=== PATIENT | female | born 1995 | race Caucasian/White ===

== ENCOUNTER → 2020-06-14 | Outpatient (CLI) | payer OTHER ==
--- NOTE | 2020-06-14 13:36 | Diagnostic Imaging Report ---
INDICATION: survey. TECHNIQUE: Multiple real-time grayscale images were obtained over the gravid uterus. COMPARISON: None FINDINGS: There is a single live fetus in a cephalic presentation. heart rate was recorded at 140 bpm. Placenta is anterior. Amniotic fluid index is 12.9 cm. Cervical length is 4 cm. survey demonstrates kidneys, bladder and stomach to be unremarkable. brain is unremarkable. There is a four-chamber heart. There is a three-vessel cord with normal insertion. The spine is unremarkable. Biometrical measurements are as follows: Biparietal 5.07 cm, age 21 weeks 3 days. Head circumference 18.12 cm, age 20 weeks 4 days. Abdominal circumference 14.82 cm, age 20 weeks 1 days. Femur length 3.32 cm, age 20 weeks 3 days. Sonographic estimate age: 20 weeks 5 days. Sonographic estimated date of delivery: 10/27/2020. Estimated Weight: 345 gm (+/- 50 gm). LMP percentile: 54%. heart rate: 140 beats per minute. number: 1 of 1. IMPRESSION: Single live IUP 20 weeks 5 days gestational age. Estimated date of confinement sonographically is 10/27/2020. Dictated by: Dictated on workstation # [id number]
== END ==
LOC: RAD 12:30
PROVIDERS: ATTEND Nurse Practitioner Women's Health
DX: Z34.02 Encounter for supervision of normal first pregnancy, second trimester (principal); Z3A.20 20 weeks gestation of pregnancy
CPT/HCPCS: 76805

== ENCOUNTER 2020-10-30 11:55 | Inpatient (IN) | payer OTHER ==
[~2020-10-30] VITALS: Ht 175.3 cm; Wt 73.1 kg
[2020-10-30] VITALS (30 sets, daily range): BP systolic 104–140; BP diastolic 55–85
[2020-10-30] MEDS ORDERED: LIDOCAINE/EPI 2% 1:200,00 (XYLOCAINE) 20 ML VIAL INJ ONE (12:45)
[2020-10-30] MEDS ORDERED: D5 LR IV SOLUTION 1,000 ML IV SCH ×2 (12:45→13:00)
--- NOTE | 2020-10-30 12:53 | History & Physical ---
History and Physical Date Seen by Provider: Oct 30, 2020 Time Seen by Provider: 12:51 This patient is a 25-year-old 1 female who presents at 39+ weeks gestation with complaint of spontaneous rupture membranes and painful contractions.Her Has been uncomplicated and her GBS culture after 35 weeks gestation was negative. Patient reports a large gush of clear fluid Patient is uncomfortable and would like to have an epidural and we discussed that Allergies are to penicillin and Z-Dex Medications are vitamins Medical social and surgical history is all per the antepartum record per Dr. Maggie SALAS exam is normal Neck is supple no lymphadenopathy no thyromegaly Abdomen is gravid soft nontender nondistended Extremities show no clubbing or cyanosis. There is no Homans' sign. Pelvic exam per the nurse shows a cervix 7 cm dilated effacement was not stated station was 0 to +1 with a vertex presentation and clear fluid monitor shows a category 1 tracing with contractions every 3 to 5 minutes Assessment and plan Term at 39+ weeks gestation and active labor with spontaneous rupture membranes. We anticipate a vaginal delivery 39 weeks gestation in active labor with spontaneous rupture membranes Allergies and Home Medications Allergies Coded Allergies: Penicillins (Verified Allergy, Unknown, Rash, 10/30/20) Uncoded Allergies: z-pack (Allergy, Mild, 10/30/20) Patient Home Medication List Home Medication List Reviewed: Yes MADHAV ERWIN MD Oct 30, 2020 12:53
[2020-10-30 13:09] LABS: BASOPHILS # (AUTO) 0.1 10^3/uL (0.0-0.1); BASOPHILS % (AUTO) 0 % (0-10); EOSINOPHILS # (AUTO) 0.1 10^3/uL (0.0-0.3); EOSINOPHILS % (AUTO) 0 % (0-10); HEMATOCRIT 43 % (35-52); HEMOGLOBIN 15.1 g/dL (11.5-16.0); LYMPHOCYTES # (AUTO) 1.5 10^3/uL (1.0-4.0); LYMPHOCYTES % (AUTO) 9 % (12-44); MEAN CORPUSCULAR HEMOGLOBIN 32 pg (25-34); MEAN CORPUSCULAR HGB CONC 35 g/dL (32-36); MEAN CORPUSCULAR VOLUME 92 fL (80-99); MEAN PLATELET VOLUME 11.7 fL (9.0-12.2); MONOCYTES # (AUTO) 1.3 10^3/uL (0.0-1.0); MONOCYTES % (AUTO) 7 % (0-12); NEUTROPHILS # (AUTO) 14.3 10^3/uL (1.8-7.8); NEUTROPHILS % (AUTO) 82 % (42-75); PLATELET COUNT 160 10^3/uL (130-400); WHITE BLOOD COUNT 17.5 10^3/uL (4.3-11.0)
[2020-10-30] MEDS ORDERED: OXYTOCIN PRE-MIX DRIP 500 ML IV ONE (13:11)
[2020-10-30] MEDS ORDERED: fentaNYL 2 mcg/ml BUPIVA 0.125 100 ML ONE (13:11)
[2020-10-30 13:30] LABS: BAND NEUTROPHILS 1 %; EOSINOPHILS % (MANUAL) 1 %; LYMPHOCYTES % (MANUAL) 12 %; MONOCYTES % (MANUAL) 4 %; NEUTROPHILS % (MANUAL) 82 %; RBC MORPH NORMAL
[2020-10-30] MEDS ORDERED: fentaNYL INJ 100 MCG/2 ML AMP ONE (13:54)
[2020-10-30] MEDS: CATHETER FLUSH 10 ML SYR IV SCH (14:23)
[2020-10-30] MEDS ORDERED: PREN1TAB79 PO (14:37)
[2020-10-30] MEDS ORDERED: FERR325T18 PO (14:37)
[2020-10-30] MEDS ORDERED: METOCLOPRAMIDE INJ 10 MG/2 ML (REGLAN) IV PRN (15:15)
[2020-10-30] MEDS ORDERED: diphenhydrAMINE 50 MG/ML INJ (BENADRYL) IV PRN (15:15)
[2020-10-30] MEDS ORDERED: LACTATED RINGERS 1,000 ML IV ONE (15:15)
[2020-10-30] MEDS ORDERED: CATHETER FLUSH 10 ML SYR IV PRN (15:15)
[2020-10-30] MEDS ORDERED: NALOXONE 0.4 MG/ML 1 ML (NARCAN) VIAL IV PRN (15:15)
[2020-10-30] MEDS ORDERED: OXYTOCIN PRE-MIX DRIP 500 ML IV SCH ×2 (15:15→18:00)
[2020-10-30] MEDS ORDERED: NALOXONE 0.4 MG/ML 1 ML (NARCAN) VIAL IM PRN (15:15)
[2020-10-30] MEDS ORDERED: fentaNYL 2 mcg/ml BUPIVA 0.125 100 ML IV SCH (15:15)
[2020-10-30] MEDS ORDERED: ONDANSETRON 4 MG/2 ML (SDV) Z0FRAN IV PRN (15:15)
[2020-10-30] MEDS ORDERED: IBUP-1780 PO (16:27)
[2020-10-30] MEDS ORDERED: OXYC1TAB87 PO (16:27)
[2020-10-30] MEDS ORDERED: DOCU-143 PO (16:27)
--- NOTE | 2020-10-30 16:28 | Discharge Inst-Surgical ---
Discharge Inst-Surgical Depart Medication/Instructions New, Converted or Re-Newed RX: Transmitted to Pharmacy Consults/Follow Up Patient Instructions: As directed Orders & Referrals Follow Up Appt: Call to make follow up appt. for patient in [address] Serrano Activity Per routine post vaginal delivery instructions. Diet as tolerated Patient may shower or tub bathe as desired. Activity Activity as Tolerated: No Diet Discharge Diet: No Restrictions MADHAV ERWIN MD Oct 30, 2020 16:28
[2020-10-30] MEDS ORDERED: ONDANSETRON 4 MG/2 ML (SDV) Z0FRAN IVP PRN (18:00)
[2020-10-30] MEDS ORDERED: BENZOCAINE/MENTHOL (DERMOPLAST) 56 ML CAN TP PRN (18:00)
[2020-10-30] MEDS ORDERED: oxyCODONE/APAP 5/325MG (PERCOCET 5) TABLET PO PRN (18:00)
[2020-10-30] MEDS: KETOROLAC 30 MG/ML VIAL IVP SCH (18:32)
[2020-10-31 00:26] VITALS: BP 124/74
[2020-10-31] MEDS: KETOROLAC 30 MG/ML VIAL IVP SCH ×2 (00:26→06:16)
[2020-10-31] MEDS: DOCUSATE SODIUM 100 MG (COLACE) CAP PO SCH ×2 (00:26→09:18)
--- NOTE | 2020-10-31 01:43 | OPERATIVE REPORT ---
DATE OF SERVICE: 10/30/2020 DELIVERY NOTE The patient delivered by term spontaneous vaginal delivery at 39 plus weeks gestation, a viable male infant with Apgars of 8 and 9 at 1 and 5 minutes respectively, weight of 7 pounds 12 ounces, cord pH of pending. time of 1657. The infant was delivered over a midline episiotomy that was performed with the baby pushed down onto the perineum, the heart rate in the 80s for over 10 minutes and mom unable to expel the baby. In order to shorten the second stage of labor and facilitate the delivery and allow the baby to recover from the decreased heart rate, episiotomy was warranted. The patient delivered the baby very promptly after the episiotomy was performed. The was bulb suctioned on delivery of the head and again on completion of delivery. Umbilical cord was doubly clamped, father cut the cord, the baby was passed to mom's abdomen. Cord bloods were obtained. The placenta delivered spontaneously [place]. It was normal with a 3-vessel cord. The cervix, vagina, rectum, and perineum were examined and found intact, except for the midline episiotomy and in extension of the episiotomy up the posterior vaginal wall approximately another 4 cm representing a secondary posterior vaginal wall laceration. The entire complex was repaired with a single suture of 3-0 Vicryl Rapide in the usual manner with good hemostasis and good reapproximation. Sponge and needle counts were correct on completion of delivery and repair. Blood loss was around 300 mL. The patient tolerated the delivery and the repair well and remained in the LDR for recovery. The baby remained with the mom. Job ID: [id number] DocumentID: [id number] Dictated Date: 10/30/2020 17:00:33 Finish Remover Date: 10/31/2020 01:43:31 Dictated By: MADHAV ERWIN MD MTDD
[2020-10-31 06:15] VITALS: BP 117/69
--- NOTE | 2020-10-31 08:49 | Progress Note ---
Standard Progress Note Progress Notes/Assess & Plan Date Seen by a Provider: Oct 31, 2020 Time Seen by a Provider: 08:02 Progress/Assessment & Plan This patient is without complaint. She is ambulating, voiding, tolerating oral intake well and has good pain control. Vital Signs Date Time Temp Pulse Resp B/P (MAP) Pulse Ox O2 Delivery O2 Flow Rate FiO2 10/31/20 06:15 37.0 98 18 117/69 (85) 98 Room Air 10/31/20 00:26 36.8 93 18 124/74 (91) 98 Room Air 10/30/20 19:50 37.1 99 18 123/65 (84) Room Air 10/30/20 19:03 104 18 113/55 (74) Room Air 10/30/20 18:48 107 18 118/67 (84) Room Air 10/30/20 18:33 96 18 115/59 (77) Room Air 10/30/20 18:29 106 18 120/70 (87) Room Air 10/30/20 18:02 37.6 107 18 108/65 (79) Room Air 10/30/20 17:48 100 18 116/65 (82) Room Air 10/30/20 17:33 114 18 125/63 (83) Room Air 10/30/20 17:18 97 18 110/81 (91) Room Air 10/30/20 17:16 Room Air 10/30/20 17:02 94 18 119/70 (86) Room Air 10/30/20 16:45 37.3 123 18 121/69 (86) Room Air 10/30/20 16:35 102 18 124/64 (84) Room Air 10/30/20 16:30 103 18 122/85 (97) 100 Room Air 10/30/20 16:15 37.1 68 18 118/76 (90) 99 Room Air 10/30/20 16:00 67 18 117/75 (89) 100 Room Air 10/30/20 15:45 65 18 115/70 (85) 98 Room Air 10/30/20 15:30 74 18 117/64 (81) 99 Room Air 10/30/20 15:15 36.5 67 18 108/69 (82) 99 Room Air 10/30/20 15:00 79 18 115/61 (79) 98 Room Air 10/30/20 14:45 96 18 109/64 (79) 99 Room Air 10/30/20 14:30 84 18 99 Room Air 10/30/20 14:15 91 18 104/74 (84) 98 Room Air 10/30/20 14:00 36.4 93 18 122/58 (79) 100 Room Air 10/30/20 13:49 81 18 122/57 (78) 100 Room Air 10/30/20 13:45 77 18 126/62 (83) 100 Room Air 10/30/20 13:44 85 18 126/62 (83) 100 Room Air 10/30/20 13:43 79 18 131/70 (90) 99 Room Air 10/30/20 13:41 88 18 124/72 (89) 100 Room Air 10/30/20 13:37 80 18 140/83 (102) 100 Room Air 10/30/20 13:30 68 18 131/66 (87) 98 Room Air 10/30/20 12:10 37.3 82 18 100 Room Air 10/30/20 12:10 37.3 82 18 127/84 (98) Room Air I & O 10/31/20 07:00 Intake Total 1450 ml Balance 1450 ml Vital signs are stable. Patient is afebrile. Fundus is firm below the umbilicus nontender. Extremities show no clubbing cyanosis. There is no Homans' sign. Assessment and plan day #1 status post term spontaneous vaginal delivery doing well. Plan is for routine convalescent care with discharge home at patient's request today or tomorrow Final Diagnosis 39-week spontaneous vaginal delivery MADHAV ERWIN MD Oct 31, 2020 08:49
[2020-10-31] MEDS: CATHETER FLUSH 10 ML SYR IV SCH ×2 (08:50→08:51)
[2020-10-31 09:25] VITALS: BP 120/74
[2020-10-31] MEDS ORDERED: IBUPROFEN 800 MG (MOTRIN) TAB PO SCH (12:00)
[2020-10-31 12:30] VITALS: BP 118/63
--- NOTE | 2020-10-31 14:19 | Anesthesia-Regional Post-Op ---
Regional Patient Condition Mental Status: Alert, Oriented x3 Circulation: Same as Pre-Op Headache: Absent Sensation: Full Recovery Motor Block: Absent Post Op Complications Complications None Follow Up Care/Instructions Patient Instructions None needed. Anesthesia/Patient Condition Patient is doing well, no complaints, stable vital signs, no apparent adverse anesthesia problems. No complications reported per nursing. BLAIR MARTINEZ CRNA Oct 31, 2020 14:19
[2020-10-31 18:00] VITALS: BP 121/74
== END 2020-10-31 19:45 | disposition home or self-care (01) | DRG 807 ==
LOC: WSo 11:55 → LDRP 11:56 → WSo 12:39 → LDRP 20:00
PROVIDERS: ADMIT Obstetrics & Gynecology; ATTEND Obstetrics & Gynecology
PROC: 10E0XZZ Delivery of Products of Conception, External Approach (ICD-10-PCS; principal; 2020-10-30)
PROC: 0KQM0ZZ Repair Perineum Muscle, Open Approach (ICD-10-PCS; 2020-10-30)
DX: O70.1 Second degree perineal laceration during delivery (principal); Z37.0 Single live birth; Z3A.39 39 weeks gestation of pregnancy; Z88.1 Allergy status to other antibiotic agents; Z88.0 Allergy status to penicillin
CPT/HCPCS: 36415; 85007; 85027; 86850; 86900; 86901; 99212